=== PATIENT | male | born 1990 | race African-American/Black ===

== ENCOUNTER 2017-03-07 13:56 | Emergency (ER) | payer OTHER ==
[~2017-03-07] VITALS: Ht 175.3 cm; Wt 74.8 kg
--- NOTE | ~2017-03-07 | EKG ---
[place] [id number] [email or web address] [address] ELECTROCARDIOGRAM REPORT Name: SEBASTIAN REYES ELIZABETH [id number] Admission: 03/07/17 Attend Phys: Discharge: 03/07/17 Date of : [birth year] Report #: [id number] THIS REPORT FOR: //name// [facility] ED Test Date: 2017-03-07 Test Time: 14:19:38 Pat Name: SEBASTIAN REYES Department: Room: Gender: M Rn Office: [id number] : 1990 Requested By: Nawaf Tucker Order Number: [id number] MD: Andrew Paula Measurements Intervals [place] Rate: 71 P: 36 MA: 137 QRS: 77 QRSD: 92 T: 20 QT: 355 QTc: 386 Interpretive Statements Sinus rhythm ST elev, probable normal early repol pattern No previous ECG available for comparison Electronically Signed On 03-08-2017 8:30:23 CDT by Andrew Paula [email or web address] <ELECTRONICALLY SIGNED> By: Andrew Paula MD, [facility] 03/08/17 0830 1419 1419 Andrew Paula MD, FACC /EPI
[~2017-03-07 13:56] MED LIST: BACTRIM DS TAB1 EACH PO; NOHOMEMEDICATIONS; NORCO 5-325 TA1 EACH PO
[2017-03-07] MEDS ORDERED: NAPROSYN500 MG PO (15:55)
[2017-03-07 15:58] VITALS: BP 122/70
== END 2017-03-07 15:58 | disposition left against medical advice (07) ==
LOC: ER 13:56
DX: S40.011A Contusion of right shoulder, initial encounter (principal); S60.011A Contusion of right thumb without damage to nail, initial encounter; I48.91 Unspecified atrial fibrillation; F17.210 Nicotine dependence, cigarettes, uncomplicated; Z98.890 Other specified postprocedural states; Y04.0XXA Assault by unarmed brawl or fight, initial encounter; Y93.89 Activity, other specified; Y92.098 Other place in other non-institutional residence as the place of occurrence of the external cause; Y99.8 Other external cause status